=== PATIENT | female | born 1990 | race Caucasian/White ===

== ENCOUNTER 2019-10-04 16:18 | Emergency (ER) | payer OTHER ==
[2019-10-04 16:29] VITALS: BP 101/62; PULSE 86; TEMP 98.2; BMI 22.0
[2019-10-04] MEDS ORDERED: SODIUM CHLORIDE 1,000 ML IV STA (16:47)
--- NOTE | 2019-10-04 17:05 | PDOC ---
History of Present Illness - General Chief Complaint: Weakness Stated Complaint: WEAKNESS, H/O VOMITING, DIARRHEA Time Seen by Provider: 10/04/19 16:22 - History of Present Illness Initial Comments: 10/04/19 17:05 28 F with no PMH presents to ED with 3 weeks of fatigue. Pt reports that she feels very tired and has no energy to do anything. Denies any increased sleepiness, just describes generalized fatigue. Denies any F/C. Reports some nausea, vomiting, and diarrhea 3 days ago that has resolved. No nausea currently but endorses poor appetite. Denies abdominal pain. Denies cough/ congestion. Denies CP/SOB. No known sick contacts. Denies any substance abuse. Past History - Past Medical History Allergies/Adverse Reactions: Allergies Allergy/AdvReac Type Severity Reaction Status Date / Time amoxicillin Allergy Verified 10/04/19 16:24 cefprozil [From Cefzil] Allergy Verified 10/04/19 16:24 Penicillins Allergy Verified 10/04/19 16:24 Home Medications: Ambulatory Orders NK [No Known Home Medication] 10/04/19 COPD: No Other medical history: PT DENIES - Psycho Social/Smoking Cessation Hx Smoking History: Never smoked Have you smoked in the past 12 months: No Information on smoking cessation initiated: No Hx Alcohol Use: No Review of Systems - Review of Systems Comments:: 10/04/19 17:07 "GENERAL/CONSTITUTIONAL: + fatigue, No fever or chills. No weakness. HEAD, EYES, EARS, NOSE AND THROAT: No change in vision. No ear pain or discharge. No sore throat. CARDIOVASCULAR: No chest pain, no shortness of breath, no loss of consciousness RESPIRATORY: No cough, wheezing, or hemoptysis. GASTROINTESTINAL: No nausea, vomiting, diarrhea or constipation. GENITOURINARY: No dysuria, frequency, or change in urination. MUSCULOSKELETAL: No joint or muscle swelling or pain. No neck or back pain. SKIN: No rash NEUROLOGIC: No vertigo, no change in strength/sensation. ENDOCRINE: No increased thirst. No abnormal weight change. HEMATOLOGIC/LYMPHATIC: No anemia, easy bleeding, or history of blood clots. ALLERGIC/IMMUNOLOGIC: No hives or skin allergy. *Physical Exam - Vital Signs Last Vital Signs Temp Pulse Resp BP Pulse Ox 98.2 F 86 18 101/62 98 10/04/19 16:18 10/04/19 16:18 10/04/19 16:18 10/04/19 16:18 10/04/19 16:18 - Physical Exam 10/04/19 17:07 "GENERAL: Awake, alert, and fully oriented, in no acute distress. HEAD: No signs of trauma EYES: PERRLA, EOMI, sclera anicteric, conjunctiva clear ENT: Auricles normal inspection, hearing grossly normal, nares patent, oropharynx clear without exudates. Moist mucosa NECK: Nontender, no stepoffs, Normal ROM, supple, no lymphadenopathy, JVD, or masses LUNGS: Breath sounds equal, clear to auscultation bilaterally. No wheezes, and no crackles HEART: Regular rate and rhythm, normal S1 and S2, no murmurs, rubs or gallops ABDOMEN: Soft, nontender, normoactive bowel sounds. No guarding, no rebound. No masses EXTREMITIES: Normal range of motion, no edema. No clubbing or cyanosis. No cords, erythema, or tenderness NEUROLOGICAL: Cranial nerves II through XII intact. 5/5 strength and sensation in all extremities, Normal speech, normal gait, normal cerebellar function SKIN: Warm, Dry, normal turgor, no rashes or lesions noted. ED Treatment Course - LABORATORY CBC & Chemistry Diagram: 10/04/19 17:09 10/04/19 17:09 Medical Decision Making - Medical Decision Making 10/04/19 17:07 28 F with generalized fatigue x 3 weeks. Pt very well appearing on exam. Possible viral syndrome like mononucleosis, though pt without any other infectious symptoms. Will check basic labs to r/o anemia or metabolic derangement. - Labs, TSH - UA - IVF bolus 10/04/19 18:40 TSH pending Labs otherwise wnl Pt reassessed - feels much better with fluids Pt is well appearing, with normal vitals. Clinically stable for DC at this time. I discussed the physical exam findings, ancillary test results and final diagnoses with the patient. I answered all of the patient's questions. The patient was satisfied with the care received and felt comfortable with the discharge plan and treatment plan. The patient agrees to follow up with the primary care physician within 24-72 hours. Discharge - Discharge Information Problems reviewed: Yes Clinical Impression/Diagnosis: Fatigue Condition: Stable Disposition: HOME - Follow up/Referral - Patient Discharge Instructions Patient Printed Discharge Instructions: DI for Fatigue Additional Instructions: Your symptoms are likely due to a viral infection. If you experience any fevers, chills, abdominal pain, vomiting, chest pain, shortness of breath, or any other concerning symptoms, return to the ER immediately. Otherwise, follow up with your primary doctor within 1 week for re-evaluation. - Post Discharge Activity
[2019-10-04 17:51] LABS: ALBUMIN 3.5 g/dl (3.4-5.0); BILIRUBIN,TOTAL 0.5 mg/dl (0.2-1); CALCIUM 8.3 mg/dl (8.5-10); CREATININE 0.4 mg/dl (0.55-1.3); POTASSIUM 3.5 mmol/L (3.5-5.1); TOT PROT 5.9 g/dl (6.4-8.2)
[2019-10-04 18:25] LABS: EPITHELIAL CELLS FEW /hpf
[2019-10-04 18:29] LABS: BASO % 0.4 % (0-2.0); EOS % 1.7 % (0-4.5); HEMATOCRIT 36.2 % (32.4-45.2); HEMOGLOBIN 12.5 GM/dl (10.7-15.3); LYMPH % 32.5 % (8-40); MCH 30.7 pg (25.7-33.7); MCHC 34.5 g/dl (32.0-36.0); MEAN CELL VOLUME 88.9 fl (80-96); MEAN PLT VOLUME 9.2 fl (7.5-11.1); MONO % 10.9 % (3.8-10.2); NEUT % 54.5 % (42.8-82.8); PLATELET COUNT 221 K/MM3 (134-434); RBC 4.07 M/mm3 (3.60-5.2); RDW 11.7 % (11.6-15.6); WHITE BLOOD COUNT 5.6 K/mm3 (4.0-10.8)
== END 2019-10-04 18:45 | disposition home or self-care (01) ==
LOC: FER 16:18
PROC: 3E0337Z Introduction of Electrolytic and Water Balance Substance into Peripheral Vein, Percutaneous Approach (ICD-10-PCS; principal; 2019-10-04)
DX: R53.83 Other fatigue (principal); Z88.0 Allergy status to penicillin; Z88.8 Allergy status to other drugs, medicaments and biological substances
CPT/HCPCS: 36415; 80053; 81003; 81015; 84443; 84703; 85025; 99283-25; J7030

== ENCOUNTER 2020-12-07 00:03 | Emergency (ER) | payer OTHER ==
[2020-12-07 00:11] VITALS: BP 116/83; PULSE 88; TEMP 98; BMI 24.3
== END 2020-12-07 00:20 | disposition home or self-care (01) ==
LOC: FER 00:03
DX: S60.443A External constriction of left middle finger, initial encounter (principal)
CPT/HCPCS: 99281-25